=== PATIENT | male | born 1995 | race Hispanic/Latino ===

== ENCOUNTER 2018-01-11 22:29 | Emergency (ER) | payer OTHER ==
[2018-01-11] MEDS ORDERED: Ibuprofen 800 MG TAB ONE (23:31)
--- NOTE | 2018-01-12 | RAD ---
THREE VIEWS OF THE RIGHT TOES 01/11/18 COMPARISON: None. HISTORY: Injury, trauma, pain. FINDINGS: There is a dislocation of the fourth proximal interphalangeal joint. The middle phalanx is dislocated proximally and dorsal to the distal aspect of the fourth proximal phalanx. IMPRESSION: Dislocation of the fourth proximal interphalangeal joint. POS: [facility]
--- NOTE | 2018-01-12 09:14 | RAD ---
RIGHT TOES 3 VIEWS: Date: 01/12/18 HISTORY: Injury. Post reduction of fourth toe. Right toe pain. FINDINGS/IMPRESSION: There has been interval reduction of the dislocation of the fourth PIP joint noted on earlier exam at 2335 hours on 01/11/18. Anatomic alignment has been restored. No fracture is seen. POS: [facility]
== END 2018-01-12 00:23 | disposition home or self-care (01) ==
LOC: ERS 22:29
DX: S93.114A Dislocation of interphalangeal joint of right lesser toe(s), initial encounter (principal); F17.210 Nicotine dependence, cigarettes, uncomplicated; W50.1XXA Accidental kick by another person, initial encounter; Y93.66 Activity, soccer
CPT/HCPCS: 28660